=== PATIENT | female | born 1975 | race Caucasian/White ===

== ENCOUNTER → 2016-06-13 | Outpatient (CLI) | payer MEDICARE, OTHER ==
--- NOTE | 2016-06-13 10:56 | MR ---
EXAMINATION TYPE: MR brain wo/w con DATE OF EXAM: 06/13/2016 10:38 AM COMPARISON: Outside MRI brain from October 28, 2015 from [facility] reviewed on their PACS s ystem HISTORY: White matter changes per order, migraines headaches possible MS per patient. TECHNIQUE: Multiplanar, multisequence images of the brain and brainstem is performed without and with IV contras t, utilizing 14 mL intravenous MultiHance gadolinium contrast is administered intravenously. Demyeli nating disease protocol with additional Sagittal Flair sequence performed. FINDINGS: T2 Lesions Present : Yes Approximate Number of Lesions: Approximately 20-30 Locations Identified : Scattered subcortical and deep white matter lesions Size of Reference Lesion(s): 1. 0.7 cm x 0.3 cm x 0.3 cm on axial image 21 and sagittal image 7 left parietal deep white matter l esion felt stable in size. Enhancing Lesion(s) Present: No Change from Prior: Difficult to accurately assess. Likely stable, there is better visualization of le sions on current study presumed on basis of 3 Ana imaging. Cannot exclude some progression in numbe r of lesions. Diffusion weighted images demonstrate no evidence of a recent infarct or other diffusion abnormality. There is no worrisome extra-axial fluid collection. The ventricular system and cisternal spaces ar e normal in size and appearance. The brain volume is age appropriate. Midline structures demonstrate normal morphology. The craniocervical junction appears within normal limits. Post contrast images demonstrate no abnormal enhancement. Vague area of enhancement on prior exam left parietal level is not identified as persistent enhancement on today's exam. The dural veno us sinuses appear patent. The visualized sinuses are clear and the globes are intact. IMPRESSION: Mild nonspecific white matter changes redemonstrated. Cannot exclude progression in numbe r of lesions from most recent prior study versus better visualization related to imaging on 3 Ana m agnet. No enhancing lesions are evident.
== END | disposition home or self-care (01) ==
LOC: RADMRIMAIN 09:46
PROVIDERS: ATTEND Psychiatry & Neurology Neurology
DX: R90.82 White matter disease, unspecified (principal)
CPT/HCPCS: 70553; A9577

== ENCOUNTER → 2018-08-05 | Outpatient (CLI) | payer MEDICARE, OTHER ==
--- NOTE | 2018-08-05 21:35 | MR ---
MRI CERVICAL SPINE: CLINICAL HISTORY: Multiple sclerosis relapse per patient in order. Pain or weakness in left arm and f ingers with headache per patient. TECHNIQUE: Multiplanar, multisequence imaging of the cervical spine is performed without and with IV contrast, 5.5 cc of gadolinium was given intravenously. Demyelinating disease protocol with additiona l PD sagittal sequence. COMPARISON: None. FINDINGS: Sagittal images of the cervical spine show the craniocervical junction to appear within nor mal limits. The cervical and upper thoracic spinal cord is normal in course, caliber, and signal. V ertebral alignment is straightened. The vertebral body and intravertebral disk heights are normal. N o suspicious posterior disc herniations are seen on sagittal images. The bone marrow signal intensity is within normal limits. No suspicious postcontrast enhancement is identified. Axial images show mild broad-based posterior disc protrusions minimally effacing anterior thecal sac at C3-C4 and C6-C7 levels otherwise are felt within normal limits. IMPRESSION: Tiny disc herniations C3-C4 and C6-C7 levels. No MRI evidence for demyelinating disease i nvolvement in the cervical spinal cord.
--- NOTE | 2018-08-05 21:42 | MR ---
EXAMINATION TYPE: MR brain/orbits wo/w con DATE OF EXAM: 08/05/2018 COMPARISON: NONE HISTORY: Multiple sclerosis / Demyelinating disease TECHNIQUE: Multiplanar, multisequence images of the brain and brainstem as well as orbits are all performed with out and with IV contrast, utilizing 5.5 mL intravenous Gadavist gadolinium contrast is administered i ntravenously. Demyelinating disease protocol with additional Sagittal Flair sequence performed. FINDINGS: T2 Lesions Present : Yesterday Approximate Number of Lesions: Approximately 20-25 small lesions Locations Identified : Scattered superficial and deep white matter lesions. No infratentorial lesions . Size of Reference Lesion(s): 1. 0.7 cm x 0.4 cm x 0.3 cm on axial image 19 and sagittal image 10 left parietal deep white matter lesion. Enhancing Lesion(s) Present: No T1 Hypointense Lesion(s) Present: Yes Change from Prior: N/A Diffusion weighted images demonstrate no evidence of a recent infarct or other diffusion abnormality. There is no worrisome extra-axial fluid collection. The ventricular system and cisternal spaces ar e normal in size and appearance. The brain volume is age appropriate. Midline structures demonstrate normal morphology. The craniocervical junction shows asymmetric promi nence of the right cerebellar tonsil bulging into foramen magnum sagittal image 19 but not greater th an 5 mm inferior descent to suggest Chiari type I malformation. Post contrast images demonstrate no abnormal enhancement. The dural venous sinuses appear patent. The visualized sinuses are clear. The globes appear intact bilaterally. Rectus muscles are symmetric and felt within normal limits. Int raconal fat is preserved bilaterally. No suspicious enhancement is identified. Suprasellar cistern is maintained. Optic chiasm is not effaced. Nasal septum is noted deviated to right of midline. IMPRESSION: 1. Mild to moderate nonspecific white matter changes presumed on the basis of patient's known multipl e sclerosis. No enhancing lesions are evident. 2. Unremarkable MRI of the orbits.
== END ==
LOC: RADMRIMAIN 19:49
PROVIDERS: ATTEND Psychiatry & Neurology Neurology
DX: R90.89 Other abnormal findings on diagnostic imaging of central nervous system (principal); G35 Multiple sclerosis
CPT/HCPCS: 70543; 70553; 72156; 96365; 96366; J2930; A9585

== ENCOUNTER → 2023-04-09 | Outpatient (CLI) | payer MEDICARE, OTHER ==
[2023-04-09 12:47] VITALS: BP 102/53; PULSE 60; RESP 16
--- NOTE | 2023-04-09 14:56 | P.PAINPG ---
PQRS Measure Charge Sheet Comment: HISTORY OF PRESENT ILLNESS: A 47 yr old female as a referral from Dr Stratton (ret) and Dr Diaz presents today w severe and chronic LBP x 7 yrs secondary to T11-L3 Fusion, post laminectomy syndrome for evaluation. Pt states pain level is provoked at 8 /10 in intensity, constant, localized in the cervical, thoracic and lumbar spine, predominantly axial, achy in character w shooting pain. Pain is provoked by any movement. Pain is alleviated by medications ([place] 10/325mg #120, Tyl), THC, repositioning and rest. Pt refuses to acknowledge that THC and narcotics can not be combined, refuses to accept that the two potentiate diminished level of consciousness and respiratory distress. When offered Naproxen, pt stated she can not take anti-inflammatories at all because of brain surgery she had. She also stated she will not do any PT. Pt stormed out of the exam room when told she will not receive narcotic medications. PMH: OA, MDD/ Anxiety PSH: Lumbar Surgery SH: Daily tobacco use, Rare ETOH use, Cannabis use FH: Non contributory All: See list Meds: See list REVIEW OF ORGAN SYSTEMS: CONSTITUTIONAL: No fevers or chills. No recent weight loss. NEUROLOGICAL: + numbness and tingling along the distal extremities. No seizure disorders or headaches. MUSCULOSKELETAL: + pain PSYCHIATRIC: Denies current depression or suicidal thoughts. Physical Examinations : Constitutional : Cooperative , not in acute distress . Neurologic : Cranial nerve II to XII intact. No focal neurological deficits. Psychiatric : alert & oriented x 3. Matching mood & appropriate affect. Judgment & insight intact. Musculoskeletal : Cervical Spine Motor strength in the deltoid and biceps: Normal right side. Normal Left side Motor strength biceps and the wrist extensors: Normal right side . Normal left side Motor strength in the triceps muscle: Normal right side. Normal left side Deep tendon reflexes: Normal at the biceps. Normal at Brachioradialis. Normal at triceps Vertebral body tenderness to deep palpation over Cervical facet loading test: positive bilaterally Spurling test: positive bilaterally Neck distraction test: positive bilaterally Jeet sign: positive bilaterally Lumbar spine Motor strength lower extremities ,thigh and legs 5/5 Right side , 5/5 Left side Deep tendon reflexes : Normal Knee Jerk. Normal Ankle Jerk Vertebral body tenderness over Pickett Test positive Lumbar facet Loading Test: positive Right / positive Left Range of motion of the lumbar spine Flexion 30 degrees, extension 10 degrees Straight Leg Raise test: Left/ Right positive at degree Anita test: positive right / positive left. Severe tenderness over the Sacroiliac joint on the Right / Left sides Gaenslen test: positive bilaterally Seated flexion test: positive bilaterally. Sacral spine : Severe tenderness over the Sacroiliac joint: right side / left side Range of motion: Flexion of the lumbar spine <60 degrees Range of motion: Extension of the lumbar spine <20 degrees Gaenslen's Test positive Anita test: positive right side / left side Thigh Thrust Test Sacral Thrust Test Imaging: CT noncontrast of the lumbar spine from 12/19/15 reviewed Assessment/ Plan : T11-L3 Fusion, Post Laminectomy Syndrome Imaging recommended though pt is disinterested at this time. All questions answered. I have spent greater than 30 minutes on patient care today. Dr Mullins was available by phone for the evaluation of this patient. The time was used to review the medical records including relevant urine studies and Prescription history (MAPs), review of the available imaging, evaluation and examination of the patient, coordination of care with the medical staff and if applicable referring physicians, as well as creation of the medical record PQRS Narrative: Smoking Status Former smoker Home Medications: Ambulatory Orders Pregabalin [Lyrica] 150 mg PO BID 09/07/15 Cholecalciferol (Vitamin D3) [Vitamin D3] 50,000 unit PO WEEKLY 12/16/16 Glatiramer Acetate [Copaxone] 40 mg SQ WEEKLY 12/16/16 Omeprazole [PriLOSEC] 20 mg PO DAILY 08/02/18 Controlled Substance Measures - Controlled Substance Measures Is patient prescribed a controlled substance at discharge?: No
== END ==
LOC: PNWHC3 12:05
PROVIDERS: ATTEND Specialist
DX: M54.17 Radiculopathy, lumbosacral region (principal); M96.1 Postlaminectomy syndrome, not elsewhere classified; M43.25 Fusion of spine, thoracolumbar region; M19.90 Unspecified osteoarthritis, unspecified site; F32.9 Major depressive disorder, single episode, unspecified; F41.9 Anxiety disorder, unspecified; Z72.0 Tobacco use; Z88.8 Allergy status to other drugs, medicaments and biological substances; Z91.040 Latex allergy status; Z88.2 Allergy status to sulfonamides; Z91.018 Allergy to other foods
CPT/HCPCS: 99211

== ENCOUNTER → 2023-11-24 | Outpatient (CLI) | payer MEDICARE ==
[2023-11-24 11:07] VITALS: BP 95/60; PULSE 75; RESP 16
--- NOTE | 2023-11-24 15:01 | P.PAINPG ---
Objective - Vital Signs Vital signs: Vital Signs Temp Pulse 75 11/24/23 11:02 Resp 16 11/24/23 11:02 BP 95/60 11/24/23 11:02 Pulse Ox 96 11/24/23 11:02 FiO2 Intake & Output 11/23/23 11/24/23 11/24/23 18:59 06:59 18:59 Weight 69.4 kg PQRS Measure Charge Sheet Mode of Arrival: Ambulatory Comment: HISTORY OF PRESENT ILLNESS: A 48 yr old female as a referral from Dr Stratton (ret) and Dr Diaz presents today w severe and chronic LBP x 8 yrs secondary to T11-L3 Fusion, post laminectomy syndrome for evaluation. Pt states pain level is provoked at 8 /10 in intensity, constant, localized in the cervical, thoracic and lumbar spine, predominantly axial, achy in character w shooting pain. Pain is provoked by any movement. Pain is alleviated by medications ([place] 10/325mg #120, Tyl), THC products, repositioning and rest. Pt refuses to acknowledge that THC and narcotics can not be combined, refuses to accept that the two potentiate diminished level of consciousness and respiratory distress. When offered Naproxen, pt stated she can not take anti-inflammatories at all because of brain surgery she had. She also stated she will not do any PT. Pt stormed out of the exam room again when told she will not receive narcotic medications. PMH: OA, MDD/ Anxiety PSH: Lumbar Surgery SH: Daily tobacco use, Rare ETOH use, Cannabis use FH: Non contributory All: See list Meds: See list REVIEW OF ORGAN SYSTEMS: CONSTITUTIONAL: No fevers or chills. No recent weight loss. NEUROLOGICAL: + numbness and tingling along the distal extremities. No seizure disorders or headaches. MUSCULOSKELETAL: + pain PSYCHIATRIC: Denies current depression or suicidal thoughts. Physical Examinations : Constitutional : Cooperative , not in acute distress . Neurologic : Cranial nerve II to XII intact. No focal neurological deficits. Psychiatric : alert & oriented x 3. Matching mood & appropriate affect. Judgment & insight intact. Musculoskeletal : Cervical Spine Motor strength in the deltoid and biceps: Normal right side. Normal Left side Motor strength biceps and the wrist extensors: Normal right side . Normal left side Motor strength in the triceps muscle: Normal right side. Normal left side Deep tendon reflexes: Normal at the biceps. Normal at Brachioradialis. Normal at triceps Vertebral body tenderness to deep palpation over Cervical facet loading test: positive bilaterally Spurling test: positive bilaterally Neck distraction test: positive bilaterally Jeet sign: positive bilaterally Lumbar spine Motor strength lower extremities ,thigh and legs 5/5 Right side , 5/5 Left side Deep tendon reflexes : Normal Knee Jerk. Normal Ankle Jerk Vertebral body tenderness over Pickett Test positive Lumbar facet Loading Test: positive Right / positive Left Range of motion of the lumbar spine Flexion 30 degrees, extension 10 degrees Straight Leg Raise test: Left/ Right positive at degree Anita test: positive right / positive left. Severe tenderness over the Sacroiliac joint on the Right / Left sides Gaenslen test: positive bilaterally Seated flexion test: positive bilaterally. Sacral spine : Severe tenderness over the Sacroiliac joint: right side / left side Range of motion: Flexion of the lumbar spine <60 degrees Range of motion: Extension of the lumbar spine <20 degrees Gaenslen's Test positive Anita test: positive right side / left side Thigh Thrust Test Sacral Thrust Test Imaging: CT noncontrast of the lumbar spine from 12/19/15 reviewed Assessment/ Plan : T11-L3 Fusion, Post Laminectomy Syndrome Recommendation of follow up w orthopedic surgeon to explore additional treatment options. All questions answered. I have spent greater than 30 minutes on patient care today. Dr Mullins was available by phone for the evaluation of this patient. The time was used to review the medical records including relevant urine studies and Prescription history (MAPs), review of the available imaging, evaluation and examination of the patient, coordination of care with the medical staff and if applicable referring physicians, as well as creation of the medical record PQRS Narrative: Smoking Status Former smoker Blood Pressure 95/60 Pain Intensity [Bilateral 7 Lower Back] Scale Used Numeric (1 - 10) Hx Alcohol Use (MH) No Home Medications: Ambulatory Orders Pregabalin [Lyrica] 150 mg PO BID 09/07/15 Cholecalciferol (Vitamin D3) [Vitamin D3] 50,000 unit PO WEEKLY 12/16/16 Glatiramer Acetate [Copaxone] 40 mg SQ WEEKLY 12/16/16 Omeprazole [PriLOSEC] 20 mg PO DAILY 08/02/18 Controlled Substance Measures - Controlled Substance Measures Is patient prescribed a controlled substance at discharge?: No
== END ==
LOC: PNWHC3 10:43
PROVIDERS: ATTEND Specialist
DX: M96.1 Postlaminectomy syndrome, not elsewhere classified (principal); M43.25 Fusion of spine, thoracolumbar region; Z87.891 Personal history of nicotine dependence; Z88.8 Allergy status to other drugs, medicaments and biological substances; Z91.040 Latex allergy status; Z88.2 Allergy status to sulfonamides; Z88.1 Allergy status to other antibiotic agents
CPT/HCPCS: 99211